=== PATIENT | female | born 1960 | race Hispanic/Latino ===

== ENCOUNTER 2017-05-08 14:39 | Observation (INO) | payer MEDICARE, OTHER ==
--- NOTE | 2017-05-08 14:58 | ED PDOC ---
Arrival/HPI - General Chief Complaint: Dizziness/Lightheaded Time Seen by Provider: 05/08/17 14:46 Historian: Patient - History of Present Illness Time/Duration: Prior to Arrival Symptom Onset: Sudden Symptom Course: Improving Severity Level: Moderate Associated Symptoms (Text): 05/08/17 14:56 Patient reports that she was walking outside and suddenly felt weak and dizzy and had a syncopal episode. There was no loss of bowel or bladder control. No tongue biting. She feels well at this time. No chest pain palpitations or dyspnea. No abdominal pain nausea or vomiting. No diaphoresis. She's had a similar episode previously. Past Medical History - Infectious Disease Hx of Infectious Diseases: None - Tetanus Immunization Tetanus Immunization: Unknown - Cardiac Hx Hypertension: Yes - Pulmonary Hx Respiratory Disorders: No - Neurological Hx Neurological Disorder: No - HEENT Hx HEENT Disorder: No - Renal Hx Renal Disorder: No - Endocrine/Metabolic Hx Endocrine Disorders: No - Hematological/Oncological Hx Blood Disorders: No - Integumentary Hx Dermatological Disorder: No - Musculoskeletal/Rheumatological Hx Falls: No - Gastrointestinal Hx Gastrointestinal Disorders: No - Genitourinary/Gynecological Hx Genitourinary Disorders: No - Psychiatric Hx Depression: No Hx Emotional Abuse: No Hx Physical Abuse: No Hx Substance Use: No - Surgical History Hx Appendectomy: Yes (20 yrs ago) - Anesthesia Hx Anesthesia: Yes Hx Anesthesia Reactions: No Hx Malignant Hyperthermia: No - Suicidal Assessment Feels Threatened In Home Enviroment: No Family/Social History - Physician Review Nursing Documentation Reviewed: Yes Family/Social History: Unknown Family HX Smoking Status: Never Smoked Hx Alcohol Use: No Hx Substance Use: No Hx Substance Use Treatment: No Allergies/Home Meds Allergies/Adverse Reactions: Allergies No Known Allergies Allergy (Verified 03/04/16 15:57) Home Medications: Home Meds Medication Instructions Recorded Confirmed Enalapril/Hydrochlorothiazide 5 - 12.5 mg PO DAILY 03/07/16 05/08/17 Ezetimibe/Simvastatin 10 mg PO DAILY 03/07/16 05/08/17 Lopid 600 mg PO BID 03/07/16 05/08/17 Review of Systems - Physician Review All systems were reviewed & negative as marked: Yes - Review of Systems Constitutional: Normal Respiratory: Normal Cardiovascular: Normal Gastrointestinal: Normal Genitourinary Female: Normal Neurological: Dizziness. absent: Headache, Focal Weakness, Gait Changes, Speech Changes, Facial Droop, Disequilibrium, Seizure Physical Exam Vital Signs Temp Pulse Resp BP Pulse Ox 05/08/17 16:41 89 18 145/71 98 05/08/17 15:42 98.7 F 05/08/17 15:38 95 H 18 148/75 98 05/08/17 14:50 98.1 F 107 H 18 152/79 H 95 Temperature: Afebrile Blood Pressure: Hypertensive Pulse: Regular Respiratory Rate: Normal Appearance: Positive for: Well-Appearing, Non-Toxic, Comfortable Pain Distress: None Mental Status: Positive for: Alert and Oriented X 3 - Systems Exam Head: Present: Atraumatic, Normocephalic Pupils: Present: PERRL Extroacular Muscles: Present: EOMI Conjunctiva: Present: Normal Ears: Present: NORMAL TM. No: Erythema Mouth: Present: Moist Mucous Membranes Pharnyx: No: ERYTHEMA, EXUDATE, TONSILS ENLARGED Neck: Present: Normal Range of Motion Respiratory/Chest: Present: Clear to Auscultation, Good Air Exchange, Decreased Breath Sounds. No: Respiratory Distress, Accessory Muscle Use Cardiovascular: Present: Regular Rate and Rhythm, Normal S1, S2. No: Murmurs Abdomen: Present: Normal Bowel Sounds. No: Tenderness, Distention, Peritoneal Signs Upper Extremity: Present: Normal Inspection. No: Cyanosis, Edema Lower Extremity: Present: Normal Inspection. No: Edema Neurological: Present: GCS=15, CN II-XII Intact, Speech Normal, Motor Func Grossly Intact, Normal Sensory Function, Normal Cerebellar Funct Skin: Present: Warm, Dry, Normal Color. No: Rashes Psychiatric: Present: Alert, Oriented x 3, Normal Insight, Normal Concentration Medical Decision Making ED Course and Treatment: 05/08/17 14:58 EKG shows normal sinus rhythm rate approximately [address] or T-wave changes Report Date : 05/08/2017 16:43:08 Procedure: Chest xray Dictator : Hai Mcdaniel MD IMPRESSION: No active disease. Report Date : 05/08/2017 17:15:13 PROCEDURE: CT HEAD WITHOUT CONTRAST. Dictator : Peace Hatfield MD IMPRESSION: No acute intracranial pathology identified. - Lab Interpretations Lab Results: 05/08/17 15:58 05/08/17 16:42 Lab Results 05/08/17 16:42: Sodium 144, Potassium 3.8, Chloride 107, Carbon Dioxide 24, Anion Gap 17, BUN 19, Creatinine 0.7, Est GFR ( Amer) > 60, Est GFR (Non- Af Amer) > 60, Random Glucose 91, Calcium 9.2, Magnesium 2.1, Total Bilirubin 0.6, AST 27, ALT 48, Alkaline Phosphatase 85, Lactate Dehydrogenase 553, Total Creatine Kinase 80, Troponin I < 0.01, Total Protein 7.5, Albumin 4.2, Globulin 3.2, Albumin/Globulin Ratio 1.3 05/08/17 15:58: PT 10.7, INR 0.99, APTT 23.9 05/08/17 15:58: WBC 8.6, RBC 4.42, Hgb 13.3, Hct 39.3, MCV 88.9, MCH 30.1, MCHC 33.8, RDW 13.3, Plt Count 204, MPV 11.2 H, Gran % 74.3 H, Lymph % (Auto) 17.7 L , [place] % (Auto) 5.9, Eos % (Auto) 1.9, Baso % (Auto) 0.2, Gran # 6.40, Lymph # 1.5, [place] # 0.5, Eos # 0.2, Baso # 0.02 - RAD Interpretation Radiology Orders: 05/08/17 14:54 HEAD W/O CONTRAST [CT] Stat 05/08/17 14:55 CHEST PORTABLE [RAD] Stat CT scan of the head as read by the radiologist shows no acute findings [employer]: Radiologist Disposition/Present on Arrival - Present on Arrival Any Indicators Present on Arrival: No History of DVT/PE: No History of Uncontrolled Diabetes: No Urinary Catheter: No History of Decub. Ulcer: No History Surgical Site Infection Following: None - Disposition Have Diagnosis and Disposition been Completed?: Yes Diagnosis: Syncope, Dizziness Disposition: HOSPITALIZED Disposition Time: 17:29 Patient Plan: Observation, Telemetry Patient Problems: Current Active Problems Problem Status Onset Dizziness Acute Syncope Acute Condition: GOOD Discharge Instructions (ExitCare): Syncope (ED) Forms: [employer] (Kyrgyz)
[2017-05-08 16:11] LABS: BASO # 0.02 K/mm3 (0.0-2.0); BASO % 0.2 % (0.0-3.0); EOS # 0.2 (0.0-0.7); EOS % 1.9 % (1.5-5.0); GRAN % 74.3 % (50.0-68.0); HEMOGLOBIN 13.3 gm/dL (12.0-16.0); LYMPH # 1.5 (1.2-3.4); LYMPH % 17.7 % (22.0-35.0); MEAN CELL VOLUME 88.9 fL (80.0-105.0); MEAN CORPUSCULAR HEMOGLOBIN 30.1 pg (25.0-35.0); MEAN CORPUSCULAR HGB CONC 33.8 g/dl (31.0-37.0); MEAN PLATELET VOLUME 11.2 fl (7.0-11.0); MONO # 0.5 (0.1-0.6); MONO % 5.9 % (1.0-6.0); PLATELET COUNT 204 10^3/uL (120.0-450.0); RBC 4.42 10^6/uL (3.5-6.1); RED CELL DISTRIBUTION WIDTH 13.3 % (11.5-14.5); WHITE BLOOD COUNT 8.6 10^3/ul (4.5-11.0)
[2017-05-08 16:18] LABS: INR 0.99 (0.93-1.08); PARTIAL THROMBOPLASTIN TIME 23.9 Seconds (23.7-30.8); PROTHROMBIN TIME 10.7 Seconds (9.9-11.8)
--- NOTE | 2017-05-08 16:44 | RAD ---
HISTORY: syncope COMPARISON: 03/07/2016 FINDINGS: LUNGS: No active pulmonary disease. PLEURA: No significant pleural effusion identified, no pneumothorax apparent. CARDIOVASCULAR: Normal. OSSEOUS STRUCTURES: No significant abnormalities. VISUALIZED UPPER ABDOMEN: Normal. OTHER FINDINGS: None. IMPRESSION: No active disease.
[2017-05-08 17:04] LABS: ALB/GLOB RATIO 1.3 (1.1-1.8); ALBUMIN 4.2 g/dL (3.0-4.8); ALT/SGPT 48 U/L (7-56); AST/SGOT 27 U/L (15-39); BLOOD UREA NITROGEN 19 mg/dL (7-21); CALCIUM 9.2 mg/dL (8.4-10.5); GFR AFRICAN-AMERICAN > 60; GFR NON-AFRICAN AMERICAN > 60; MAGNESIUM 2.1 mg/dL (1.7-2.2)
[2017-05-08 17:15] LABS: TROPONIN I < 0.01 ng/mL
--- NOTE | 2017-05-08 17:17 | CT ---
PROCEDURE: CT HEAD WITHOUT CONTRAST. HISTORY: syncope COMPARISON: Noncontrast head CT performed 03/04/16 TECHNIQUE: Axial computed tomography images were obtained through the head/brain without intravenous contrast. Radiation dose: Total exam DLP = 774.23 mGy-cm. This CT exam was performed using one or more of the following dose reduction techniques: Automated exposure control, adjustment of the mA and/or kV according to patient size, and/or use of iterative reconstruction technique. FINDINGS: HEMORRHAGE: No intracranial hemorrhage. BRAIN: No mass effect or edema. No atrophy or chronic microvascular ischemic changes.Please note that MRI with diffusion imaging is more sensitive in the detection of acute ischemic event. VENTRICLES: No hydrocephalus. CALVARIUM: Unremarkable. PARANASAL SINUSES: Unremarkable as visualized. No significant inflammatory changes. MASTOID AIR CELLS: Unremarkable as visualized. No inflammatory changes. OTHER FINDINGS: None. IMPRESSION: No acute intracranial pathology identified.
[2017-05-08 17:56] LABS: URINE APPEARANCE CLEAR (CLEAR); URINE BILIRUBIN NEGATIVE (NEGATIVE); URINE BLOOD NEGATIVE (NEGATIVE); URINE COLOR YELLOW (YELLOW); URINE GLUCOSE (UA) NEGATIVE (NEGATIVE); URINE LEUKOCYTE ESTERASE NEGATIVE Leu/uL (NEGATIVE); URINE NITRATE NEGATIVE (NEGATIVE); URINE PROTEIN NEGATIVE mg/dL (<30 mg/dL); URINE UROBILINOGEN 0.2 E.U./dL (<1 E.U./dL)
[2017-05-08 21:52] VITALS: BMI 31.1
[2017-05-08] MEDS ORDERED: Pneumococcal 23-Valent Vaccine IM ONE (23:47)
[2017-05-09 06:10] VITALS: O2SAT 98
[2017-05-09 06:20] LABS: HEMOGLOBIN 12.9 gm/dL (12.0-16.0); MEAN CELL VOLUME 89.1 fL (80.0-105.0); MEAN CORPUSCULAR HEMOGLOBIN 29.8 pg (25.0-35.0); MEAN CORPUSCULAR HGB CONC 33.4 g/dl (31.0-37.0); MEAN PLATELET VOLUME 10.8 fl (7.0-11.0); RBC 4.33 10^6/uL (3.5-6.1); RED CELL DISTRIBUTION WIDTH 13.2 % (11.5-14.5); WHITE BLOOD COUNT 7.6 10^3/ul (4.5-11.0)
[2017-05-09 07:26] LABS: BLOOD UREA NITROGEN 18 mg/dL (7-21); CALCIUM 8.9 mg/dL (8.4-10.5); GFR AFRICAN-AMERICAN > 60; GFR NON-AFRICAN AMERICAN > 60; HDL CHOLESTEROL 29 mg/dL (29-60)
[2017-05-09 07:37] LABS: LDL CHOLESTEROL 91 mg/dL (0-129)
[2017-05-09 07:44] LABS: % IRON SATURATION 19 % (20-55); IRON 52 ug/dL (45-180); TOTAL IRON BINDING CAPACITY 272 ug/dL (265-497)
[2017-05-09] MEDS ORDERED: Potassium Chloride 20 mEq ER Tab PO ONE (08:07)
--- NOTE | 2017-05-09 08:59 | CARD ---
APPROVED REPORT EKG Measurement Heart [id number] OK [id number] <Conclusion> Normal sinus rhythm Nonspecific ST abnormality No change
[2017-05-09 09:27] LABS: TROPONIN I < 0.01 ng/mL
[2017-05-09] MEDS ORDERED: Aminophylline 25 mg/ml Inj ONE (10:24)
[2017-05-09 12:58] LABS: FOLATE > 20.0 ng/mL
--- NOTE | 2017-05-09 16:17 | CARD ---
APPROVED REPORT EXAM: Two-dimensional and M-mode echocardiogram with Doppler and color Doppler. INDICATION Syncope 2D DIMENSIONS Left Atrium (2D)4.2 (1.6-4.0cm)IVSd1.1 (0.7-1.1cm) LVDd4.6 (3.9-5.9cm)PWd1.0 (0.7-1.1cm) LVDs3.0 (2.5-4.0cm)FS (%) 34.2 % LVEF (%)63.2 (>50%) M-Mode DIMENSIONS Aortic Root2.90 (2.2-3.7cm)Aortic Cusp Exc.1.80 (1.5-2.0cm) Aortic Valve AoV Peak Ydvxpxme280.0cm/Pati Peak GR.8mmHg Mitral Valve MV E Smdyzzqk09.6cm/sMV A Pgugnhqb32.7cm/sE/A ratio1.1 TDI Lateral E' Peak V9.16cm/sMedial E' Peak V6.63cm/sE/Lateral E'7.3 E/Medial E'10.0 Pulmonary Valve PV Peak Zkaqdnts52.2cm/sPV Peak Grad.2mmHg Tricuspid Valve TR Peak Avvwshfk412vf/sRAP SRYDTHMQ26xiUcLW Peak Gr.39mmHg QQRV13wtRp LEFT VENTRICLE The left ventricle is normal size. There is normal left ventricular wall thickness. The left ventricular function is normal.EF-60-65% There is normal LV segmental wall motion. The left ventricular diastolic function is normal. No left ventricle thrombus noted on this study. There is no ventricular septal defect visualized. There is no left ventricular aneurysm. There is no mass noted in the left ventricle. RIGHT VENTRICLE The right ventricle is normal size. There is normal right ventricular wall thickness. The right ventricular systolic function is normal. ATRIA The left atrium is mildly dilated. The right atrium is borderline dilated. The interatrial septum is intact with no evidence for an atrial septal defect. AORTIC VALVE The aortic valve is thickened but opens well. There is trace aortic regurgitation. There is no aortic valvular stenosis. There is no aortic valvular vegetation. MITRAL VALVE The mitral valve is thickened but opens well. Mitral annular calcification is mild. Mitral regurgitation is mild. There is no mitral valve stenosis. There is no evidence of mitral valve prolapse. TRICUSPID VALVE The tricuspid valve leaflets are thickened , but open well. There is mild to moderate tricuspid regurgitation.RVSP-49 mmof Hg. There is no tricuspid valve stenosis. There is no tricuspid valve prolapse or vegetation. PULMONIC VALVE The pulmonary valve is normal in structure. There is no pulmonic valvular regurgitation. There is no pulmonic valvular stenosis. GREAT VESSELS The aortic root is normal in size. The ascending aorta is normal in size. The pulmonary artery is normal. The IVC is normal in size and collapses >50% with inspiration. PERICARDIAL EFFUSION There is no pleural effusion. There is no pericardial effusion. <Conclusion> The left ventricle is normal size. There is normal left ventricular wall thickness. The left ventricular function is normal.EF-60-65% There is trace aortic regurgitation. Mitral regurgitation is mild. There is mild to moderate tricuspid regurgitation.RVSP-49 mmof Hg. The IVC is normal in size and collapses >50% with inspiration. There is no pericardial effusion.
--- NOTE | 2017-05-09 18:04 | CON ---
DATE: 05/09/2017 CHIEF COMPLAINT: Headache and dizziness. HISTORY OF PRESENT ILLNESS: This is a 56-year-old woman with past medical history of hypertension, history of appendectomy 20 years ago, history of dyslipidemia who came to the hospital because while she was walking outside she probably felt generalized weakness, dizziness in terms of lightheaded and a syncopal episode without any bowel or bladder incontinence. No tongue bite. No seizure like activity. She had a mild headache diffuse pressure type but are currently is no longer. Orthostatic vital signs are negative. She had a carotid Doppler in the past year which was showed 20-39% proximal ICA stenosis with antegrade flow vertebral artery. Neurologic exam is currently nonfocal and had been seen by cardiology. No acute events overnight. PAST MEDICAL HISTORY: Hypertension and dyslipidemia. REVIEW OF SYSTEMS: A 14-point review of system is negative except as in the HPI. ALLERGIES: NO KNOWN DRUG ALLERGIES. FAMILY HISTORY: Noncontributory. MEDICATIONS: Reviewed by nurse practitioner, see med reconciliation sheet. SOCIAL HISTORY: No illicit drug use, smoking, or EtOH abuse. PHYSICAL EXAMINATION GENERAL: The patient is sitting up in bed. In no acute distress. VITAL SIGNS: Temperature 99, pulse rate 70, blood pressure 121/74, respiratory rate 20, oxygen saturations 98% by room air. HEENT: Head is atraumatic and normocephalic. PERRLA. Extraocular muscles intact. NECK: Supple. No JVD. No adenopathy noted. LUNGS: Clear to auscultation. No adventitious sounds. HEART: S1 and S2, normal rate and rhythm. No murmurs, rubs, or gallops. ABDOMEN: Soft, nontender, nondistended. Bowel sounds present. EXTREMITIES: No clubbing, no cyanosis. Peripheral pulses 2+ felt bilaterally. NEUROLOGIC: The patient is alert and oriented to person and place, month, and year. Speech is fluent without any errors. Cranial nerves II through XII intact. Motor exam: Moves all extremities equally. Toes are downgoing bilaterally. Sensory exam: Light touch, pinprick, proprioception and vibration are intact. DTRs are 2+ throughout. Coordination, hcaekh-jr-jnjl intact. Gait is deferred for now. LABORATORY DATA: Sodium 141, potassium 3.6, chloride 104, carbon dioxide 26, BUN of 18, creatinine 0.6, random glucose 98. A1c 6.3. ASSESSMENT AND PLAN: This is a 56-year-old male with history of hypertension, dyslipidemia, had a syncopal episode, was consulted for headache. The headache was diffuse pressure type but without any auras. Most likely attention based headache. Currently, he has no headache at this time. Syncopal episode seems most likely vasovagal in nature. Orthostatic vital signs are negative. RECOMMENDATIONS: At this time I will recommend: 1. Keep his systolic blood pressures between 120-130 mmHg. 2. Continue with aspirin 81 mg p.o. daily for stroke prevention. 3. Continue with Lipitor 10 mg p.o. daily for dyslipidemia. 4. Recommend hydration . 5. Fioricet p.r.n. 1 tab q.4 hours for acute onset of headache if needed. 6. At this time continue current present medical management. Thank you for this consult. Neurologically stable. Dimitry Mario MD
--- NOTE | 2017-05-09 20:28 | CON ---
REASON FOR THE CONSULTATION: Syncope, dizziness, hypertension, hyperlipidemia. BRIEF CLINICAL HISTORY: A 56 year old obese female, body mass index 31 kg/m2, history of hypertension, history of hyperlipidemia, hypertriglyceridemia, possible benign positional vertigo (chronic vertigo), being followed with Dr. Mario, on Meclizine, who was in the [employer], went for shopping to [employer]. While the patient got off the bus, felt dizzy and passed out. Denies any chest pain. Denies shortness of breath. Denies any palpitation. While the patient recalled memory, found to be in hospital. The patient says this is second episode, but always feels that she is going to pass out starting with dizziness. According to her, previously she has been worked up and it was found to me negative. Last admission was in March 2016 with syncope also. PAST HISTORY: Significant for hypertension, hyperlipidemia, dizziness. SOCIAL HISTORY: Denies smoking. Used to smoke off and on a pack a day but quit for more than 10 years. PAST SURGICAL HISTORY: Significant for appendectomy many years ago. FAMILY HISTORY: Noncontributory. No history of coronary artery disease as per the patient. CURRENT MEDICATIONS: The patient is taking Lopid 600 mg twice a day, Zetia and simvastatin combination, Vytorin 10/20, enalapril and hydrochlorothiazide combination, 5 mg enalapril and 12.5 mg hydrochlorothiazide and p.r.n. meclizine. REVIEW OF SYSTEMS: As per HPI and negative except HPI. Previous cardiac workup as follows: The patient had carotid artery ultrasound on 03/08/2013 29% stenosis, history of stress test on 05/06/2016 and normal gated wall motion, perfusion study normal, Lexiscan ejection fraction 52%. The patient had echocardiography on 03/08/2016 that showed normal chamber size, ejection fraction 55% to 60%, trace to mild MR, mild to moderate TR, RV systolic pressure 29. PHYSICAL EXAMINATION: As follows: Height of the patient 5 feet 5 inches, weight of the patient 186 pounds, body mass index 31 kg/m2. LABORATORY DATA: Blood workup WBC 7.3, hemoglobin 12.9, hematocrit 38.9, platelet count 202. Chemistry shows sodium 141, potassium 3.0, chloride 104, carbon dioxide 26, anion gap of 15, BUN 18, creatinine 0.6. Triglycerides 276, cholesterol 168, LDL 91, HDL 29. IMPRESSION: Syncope, chronic dizziness, possible benign positional vertigo, hypertension, hyperlipidemia, multiple vessel coronary artery disease. Suggest echo and stress test, lipid profile, TSH. Further recommendation after this. We will follow with you. Thank you for the opportunity in taking care of the patient. We will discuss with Neurology as to if no etiology found for the syncope, consider loop recorder as an outpatient. We will discuss with you. Matteo Mars MD
--- NOTE | 2017-05-09 21:33 | CARD ---
APPROVED REPORT Protocol: LEXISCAN Test Type: Lexiscan Sestamibi Stress Test Attending Physician: Dr. Matteo Arroyo Referring Physician: Dr. Marycarmen Otero Test Indications: Chest Pain, Syncope Height:5 ft 5 in Weight:186lbs Medications: Lipitor,Zetia,Lopid Medical History: 56 y/o female. Hx of hypertension,syncope, dizziness. Target HR: 166 bpm Resting ECG: RSR. Resting Heart Rate: 73 bpm Resting Blood Pressure: 130/80mmHg Submaximum (85%): 141 bpm PROCEDURE Pharmacologic stress testing was performed using 0.4mg per 5ml of regadenoson given intravenously over 7-10 seconds. POST EXERCISE Reason for Termination: Protocol completed Target HR: No Max HR: 72 bpm 61% of Maximum Predicted HR: 166 bpm Exercise duration: 00:31 min:sec, 0 Stage Exercise capacity: 1.0METs Max Blood Pressure: 130/80mmHg Blood Pressure response to exercise: normal resting BP - appropriate response Heart Rate response to exercise: appropriate Chest Pain: No, none Angina index: 0 Arrhythmia: No, none ST Change: No, none Deviation: 0 mm INTERPRETATION Stress EKG Conclusion: IV LEXISCAN NUCLEAR STRESS TEST NEGATIVE FOR CHEST PzIN AND NEGATIVE FOR ST-T CHANGES. NUCLEAR SCAN REPORT PENDING. Signed by Matteo Arroyo Electronically Approved: 05/09/2017 11:21:00 EXAM: Myocardial Perfusion REST/STRESS Stress Test Type: Pharmacologic Imaging Protocol Rest Spect myocardial perfusion imaging was performed in supine position 45 minutes following the injection of 10.3 mCi of Tc-99 Myoview. At peak stress, the patient was injected intravenously with 30.7mCi of Tc-99 tetrofosmin after an infusion time of 0 minutes and 10 seconds. Gated Stress Spect was performed 50 minutes after intravenous Tc-99 Myoview injection. The images were gated to evaluate regional wall motion and calculate ventricular ejection fraction.Images were reconstructed using backfilter projection method in short horizontal and verticle long axis. Spect slices were generated. LV Perfusion The quality of the study is good. The left ventricle is within normal limits in size. The right ventricle is unremarkable. The lung uptake is normal. The distribution of tracer reveals focal hot spot in the septu and mildly to moderately decreased perfusion involving mid to basal anterior wall on the stress study. The remainder of the LV myocardium is unremarkable. The rest myocardial perfusion study shows no significant change. Wall Motion Wall motion study shows good contractility of the left ventricle. LVEF = 64%. Conclusion 1. Essentially normal SPECT myocardial perfusion study. 2. A focal hot spot is a normal variant. 3. Fixed, anterior defect is most likely due to breast attenuation. 4. Normal gated wall motion of the left ventricle.
--- NOTE | 2017-05-10 03:24 | HP ---
CHIEF COMPLAINT: Dizziness and lightheadedness. HISTORY OF PRESENT ILLNESS: The patient is a 56-year-old female came to the emergency room because according to her she was walking outside and suddenly felt weak and dizzy and had a syncopal episode. No loss of bowel movement, bladder control or tongue bite. She feels well at that time when we saw her. No chest pain, no palpitation, no dizziness or shortness of breath. No nausea, vomiting, or diarrhea. No diaphoresis. She had similar episode previously, required a flat sorting machine clerk and neurology consult to rule out arrhythmias and to rule out seizures. PAST MEDICAL HISTORY: Hypertension, history of syncopal attack a couple of months ago and history of appendectomy. The patient is mentally challenged. FAMILY HISTORY: Father and mother noncontributory. HABITS: No smoking, no drug, no ethanol. ALLERGIES: THE PATIENT IS NOT ALLERGIC WITH ANY MEDICATION. HOME MEDICATIONS: Enalapril, simvastatin and Lopid. REVIEW OF SYSTEMS: The patient is seen and examined on the bedside in the telemetry, looking comfortable. No nausea, vomiting or diarrhea. No hematuria, no hematochezia. No swelling of the leg. No chest pain, no palpitation. No headache, no dizziness. PHYSICAL EXAMINATION: VITAL SIGNS: Temperature 97, pulse 79, blood pressure 130/82 and respiratory rate 20. HEENT: Head; normocephalic and atraumatic. Eyes; PERRLA. Extraocular muscles intact. Conjunctivae clear. Nose is patent. Mucous membranes moist. NECK: Supple. No carotid bruits, JVD or thyromegaly. CHEST: Bilaterally symmetrical. HEART: S1 and S2 positive. LUNGS: Clear to auscultation. ABDOMEN: Soft. Bowel sounds are present. No organomegaly. EXTREMITIES: No edema. No cyanosis. NEUROLOGIC: The patient is awake and alert. Moving all 4 extremities. No focal deficit. LABORATORY DATA: White blood cell is 7.6, hemoglobin 12.9, hematocrit 38.6 and platelets 202. Sodium 141, potassium 3.6, BUN 18, creatinine 0.6. Hemoglobin A1c is 6.3. Iron saturation 19. Triglyceride 276. TSH 3.1. Beta hCG quantitative is less than 2.39. ASSESSMENT AND PLAN: The patient is a 56-year-old lady with hypertriglyceridemia, came with syncopal attack, lightheadedness and dizziness, history of hypertension and hypercholesterolemia, seen by neurologist and flat sorting machine clerk. Headache was diffuse, pressure type without any aura. According to the neurologist, syncopal attack looked like vasovagal in nature. Orthostatic vital signs are negative. According to the neurologist, keep blood pressure between 120 to 130 systolic. Aspirin and Lipitor, hydration, Fioricet. She went for CAT scan of the head, reviewed by me. Plan for myocardial stress test. Stress test was essentially normal, SPET myocardial perfusion study. A focal hotspot is a normal variant, the fact is most likely due to breast attenuation, normal gated wall motion of the left ventricle. Dizziness may be due to position, benign vertigo, rule out coronary artery disease as per flat sorting machine clerk, suggested upon stress test done, reviewed by me. Gastrointestinal and deep venous thrombosis prophylaxis, we will follow. Marycarmen Otero MD MTDD
[2017-05-10 11:43] VITALS: BP 114/75; PULSE 72; RESP 16; TEMP 98
--- NOTE | 2017-05-10 18:37 | CP.PCM.DIS ---
Provider - Provider Date of Admission: 05/08/17 17:29 Attending physician: Marycarmen Otero MD Time Spent in preparation of Discharge (in minutes): 60 Hospital Course - Lab Results Lab Results: Most Recent Lab Values WBC 7.6 10^3/ul (4.5-11.0) 05/09/17 05:20 RBC 4.33 10^6/uL (3.5-6.1) 05/09/17 05:20 Hgb 12.9 gm/dL (12.0-16.0) 05/09/17 05:20 Hct 38.6 % (36.0-48.0) 05/09/17 05:20 MCV 89.1 fL (80.0-105.0) 05/09/17 05:20 MCH 29.8 pg (25.0-35.0) 05/09/17 05:20 MCHC 33.4 g/dl (31.0-37.0) 05/09/17 05:20 RDW 13.2 % (11.5-14.5) 05/09/17 05:20 Plt Count 202 10^3/uL (120.0-450.0) 05/09/17 05:20 MPV 10.8 fl (7.0-11.0) 05/09/17 05:20 Gran % 74.3 % (50.0-68.0) H 05/08/17 15:58 Lymph % (Auto) 17.7 % (22.0-35.0) L 05/08/17 15:58 [place] % (Auto) 5.9 % (1.0-6.0) 05/08/17 15:58 Eos % (Auto) 1.9 % (1.5-5.0) 05/08/17 15:58 Baso % (Auto) 0.2 % (0.0-3.0) 05/08/17 15:58 Gran # 6.40 (1.4-6.5) 05/08/17 15:58 Lymph # 1.5 (1.2-3.4) 05/08/17 15:58 [place] # 0.5 (0.1-0.6) 05/08/17 15:58 Eos # 0.2 (0.0-0.7) 05/08/17 15:58 Baso # 0.02 K/mm3 (0.0-2.0) 05/08/17 15:58 PT 10.7 Seconds (9.9-11.8) 05/08/17 15:58 INR 0.99 (0.93-1.08) 05/08/17 15:58 APTT 23.9 Seconds (23.7-30.8) 05/08/17 15:58 Sodium 141 mmol/L (132-148) 05/09/17 06:00 Potassium 3.6 mmol/L (3.6-5.0) 05/09/17 06:00 Chloride 104 mmol/L (98-107) 05/09/17 06:00 Carbon Dioxide 26 mmol/L (21-33) 05/09/17 06:00 Anion Gap 15 (10-20) 05/09/17 06:00 BUN 18 mg/dL (7-21) 05/09/17 06:00 Creatinine 0.6 mg/dL (0.5-1.4) 05/09/17 06:00 Est GFR ( Amer) > 60 05/09/17 06:00 Est GFR (Non-Af Amer) > 60 05/09/17 06:00 Random Glucose 98 mg/dL (70-110) 05/09/17 06:00 Hemoglobin A1c 6.3 % (4.2-6.5) 05/09/17 06:00 Calcium 8.9 mg/dL (8.4-10.5) 05/09/17 06:00 Magnesium 2.1 mg/dL (1.7-2.2) 05/08/17 16:42 Iron 52 ug/dL (45-180) 05/09/17 06:00 TIBC 272 ug/dL (265-497) 05/09/17 06:00 % Saturation 19 % (20-55) L 05/09/17 06:00 Total Bilirubin 0.6 mg/dL (0.2-1.3) 05/08/17 16:42 AST 27 U/L (15-39) 05/08/17 16:42 ALT 48 U/L (7-56) 05/08/17 16:42 Alkaline Phosphatase 85 U/L (38-133) 05/08/17 16:42 Lactate Dehydrogenase 520 U/L (333-699) 05/09/17 06:30 Total Creatine Kinase 68 U/L (35-230) 05/09/17 06:30 Troponin I < 0.01 ng/mL 05/09/17 06:30 Total Protein 7.5 g/dL (5.8-8.3) 05/08/17 16:42 Albumin 4.2 g/dL (3.0-4.8) 05/08/17 16:42 Globulin 3.2 gm/dL 05/08/17 16:42 Albumin/Globulin Ratio 1.3 (1.1-1.8) 05/08/17 16:42 Triglycerides 276 mg/dL (35-160) H 05/09/17 06:00 Cholesterol 168 mg/dL (130-200) 05/09/17 06:00 LDL Cholesterol Direct 91 mg/dL (0-129) 05/09/17 06:00 HDL Cholesterol 29 mg/dL (29-60) 05/09/17 06:00 Vitamin B12 369 pg/mL (239-931) 05/09/17 06:00 Folate > 20.0 ng/mL 05/09/17 06:00 TSH 3rd Generation 3.1 MIU/ml (0.46-4.68) 05/09/17 05:20 Beta HCG, Quant < 2.39 mIU/mL (0-6.15) 05/09/17 06:30 Urine Color Yellow (YELLOW) 05/08/17 17:51 Urine Appearance Clear (CLEAR) 05/08/17 17:51 Urine pH 7.0 (4.7-8.0) 05/08/17 17:51 Ur Specific [place] 1.020 (1.005-1.035) 05/08/17 17:51 Urine Protein Negative mg/dL (<30 mg/dL) 05/08/17 17:51 Urine Glucose (UA) Negative mg/dL (NEGATIVE) 05/08/17 17:51 Urine Ketones Trace mg/dL (NEGATIVE) H 05/08/17 17:51 Urine Blood Negative (NEGATIVE) 05/08/17 17:51 Urine Nitrate Negative (NEGATIVE) 05/08/17 17:51 Urine Bilirubin Negative (NEGATIVE) 05/08/17 17:51 Urine Urobilinogen 0.2 E.U./dL (<1 E.U./dL) 05/08/17 17:51 Ur Leukocyte Esterase Negative Makenna/uL (NEGATIVE) 05/08/17 17:51 - Hospital Course Hospital Course: Patient reports that she was walking outside and suddenly felt weak and dizzy and had a syncopal episode. There was no loss of bowel or bladder control. No tongue biting. She feels well at this time. No chest pain palpitations or dyspnea. No abdominal pain nausea or vomiting. No diaphoresis. She's had a similar episode previously.neuro and ardio consult called , cat scane done , reviewed all chart Discharge Exam - Head Exam Head Exam: ATRAUMATIC, NORMAL INSPECTION, NORMOCEPHALIC - Eye Exam Eye Exam: EOMI, Normal appearance, PERRL Pupil Exam: NORMAL ACCOMODATION, PERRL - ENT Exam ENT Exam: Normal Oropharynx - Neck Exam Neck exam: Full Rom - Respiratory Exam Respiratory Exam: NORMAL BREATHING PATTERN, UNREMARKABLE - Cardiovascular Exam Cardiovascular Exam: REGULAR RHYTHM - GI/Abdominal Exam GI & Abdominal Exam: Normal Bowel Sounds - Rectal Exam Rectal Exam: NORMAL INSPECTION - Exam Exam: Circumcision, NORMAL INSPECTION External exam: NORMAL EXTERNAL EXAM Speculum exam: NORMAL SPECULUM EXAM Bimanual exam: NORMAL BIMANUAL EXAM - Neurological Exam Neurological exam: Alert, CN II-XII Intact, Normal Gait, Oriented x3, Reflexes Normal - Psychiatric Exam Psychiatric exam: Normal Affect, Normal Mood - Skin Skin Exam: Dry, Intact, Normal Color, Warm Discharge Plan - Follow Up Plan Condition: GOOD Disposition: HOME/ ROUTINE Instructions: Syncope (DC), Dizziness (GEN)
--- NOTE | 2017-05-10 21:46 | PN ---
DATE: 05/10/2017 SUBJECTIVE: I was asked to evaluate the patient prior to discharge. The patient denies any chest pain, dizziness, or shortness of breath. No reported arrhythmia on the monitor. PHYSICAL EXAMINATION: VITAL SIGNS: Blood pressure 114/75, heart rate 72, temperature 98, and respirations 16. HEENT: Normocephalic. CHEST: Clear. HEART: S1 and S2 regular. EXTREMITIES: N edema. LABORATORY DATA: Discharge troponins are negative. Triglycerides are elevated at 276. SMA-7 is within normal limit. Myoview imaging was consistent into conclusion with essentially normal SPECT myocardial perfusion study, focal hotspot is a normal variant, most likely due to breast attenuation, normal gated wall motion sensitive. ASSESSMENT: 1. Syncope. 2. Chronic dizziness, possibly benign positional vertigo. 3. Hypertension. 4. Hypertriglyceridemia. 5. Coronary artery disease. The current Myoview imaging is negative for ischemia. RECOMMENDATIONS: Continue current Lipitor and Lopid. Start aspirin 81 mg once a day. The patient can be discharged from the cardiac point. Robles Francis MD
== END 2017-05-10 15:57 | disposition home or self-care (01) ==
LOC: ED 14:39 → ERH 17:29 → 2RNO 23:43
PROVIDERS: ADMIT Internal Medicine; ATTEND Internal Medicine
DX: R55 Syncope and collapse (principal); R42 Dizziness and giddiness; I10 Essential (primary) hypertension; I65.29 Occlusion and stenosis of unspecified carotid artery; E78.1 Pure hyperglyceridemia; E78.00 Pure hypercholesterolemia, unspecified; E78.5 Hyperlipidemia, unspecified; E66.9 Obesity, unspecified; Z68.31 Body mass index [BMI] 31.0-31.9, adult; Z90.49 Acquired absence of other specified parts of digestive tract; Z87.891 Personal history of nicotine dependence
CPT/HCPCS: 36415; 70450; 71010; 78452; 80048; 80053; 80061; 81003; 82550; 82607; 82746; 82948; 83036; 83540; 83550; 83615; 83735; 84443; 84484; 84702; 85025; 85027; 85610; 85730; 93005; 93017; 93306; 99285; A9502; G0378; J2785

== ENCOUNTER 2017-05-18 14:17 | Observation (INO) | payer MEDICARE ==
[2017-05-18] MEDS ORDERED: Sodium Chloride 0.9% 1,000 ML IV STA (14:32)
--- NOTE | 2017-05-18 14:39 | ED PDOC ---
Arrival/HPI - General Chief Complaint: Syncope Time Seen by Provider: 05/18/17 14:19 Historian: Patient - History of Present Illness Narrative History of Present Illness (Text): 05/18/17 14:35 A 56 year old female whose past medical history includes, hypertension, presents to the Emergency department after a syncopal episode. The patient states that she got up to use the restroom when she fainted. pt unsure if she hit head, c/o of matos She also notes that she was recently admitted 1 week ago and discharges home. The patient denies fevers, chills, headache, chest pain, shortness of breath, cough, abdominal pain, nausea, vomiting, diarrhea, or an other complaints. 05/18/17 17:05 Time/Duration: Prior to Arrival Symptom Onset: Sudden Symptom Course: Unchanged Activities at Onset: Rest, Light Context: Home Past Medical History - Provider Review Nursing Documentation Reviewed: Yes - Infectious Disease Hx of Infectious Diseases: None - Tetanus Immunization Tetanus Immunization: Unknown - Cardiac Hx Cardiac Disorders: Yes Hx Hypertension: Yes - Pulmonary Hx Respiratory Disorders: No - Neurological Hx Neurological Disorder: Yes Hx Dizziness: Yes Other/Comment: syncope, loc - HEENT Hx HEENT Disorder: Yes (speech impediment, eyeglasses) - Renal Hx Renal Disorder: No - Endocrine/Metabolic Hx Endocrine Disorders: No - Hematological/Oncological Hx Blood Disorders: No - Integumentary Hx Dermatological Disorder: Yes Other/Comment: rle 1cm round red wound was a "mosquito bite" pt scratched it - Musculoskeletal/Rheumatological Hx Musculoskeletal Disorders: Yes Hx Falls: Yes (syncopal episode today) - Gastrointestinal Hx Gastrointestinal Disorders: Yes - Genitourinary/Gynecological Hx Genitourinary Disorders: No - Psychiatric Hx Psychophysiologic Disorder: No Hx Depression: No Hx Emotional Abuse: No Hx Physical Abuse: No Hx Substance Use: No - Surgical History Hx Appendectomy: Yes - Anesthesia Hx Anesthesia: Yes Hx Anesthesia Reactions: No Hx Malignant Hyperthermia: No - Suicidal Assessment Feels Threatened In Home Enviroment: No Family/Social History - Physician Review Nursing Documentation Reviewed: Yes Family/Social History: No Known Family HX Smoking Status: Never Smoked Hx Alcohol Use: No Hx Substance Use: No Hx Substance Use Treatment: No Allergies/Home Meds Allergies/Adverse Reactions: Allergies No Known Allergies Allergy (Verified 05/18/17 14:25) Home Medications: Home Meds Medication Instructions Recorded Confirmed Unobtainable 05/18/17 05/18/17 Review of Systems - Physician Review All systems were reviewed & negative as marked: Yes - Review of Systems Constitutional: absent: Fevers, Night Sweats Respiratory: absent: SOB, Cough Cardiovascular: Syncope. absent: Chest Pain Gastrointestinal: absent: Abdominal Pain, Diarrhea, Nausea, Vomiting Neurological: absent: Headache Physical Exam Vital Signs Reviewed: Yes Vital Signs Temp Pulse Resp BP Pulse Ox 05/18/17 17:11 78 21 129/67 100 05/18/17 14:26 98.5 F 85 15 125/89 99 Temperature: Afebrile Blood Pressure: Normal Pulse: Regular Respiratory Rate: Normal Appearance: Positive for: Well-Appearing, Non-Toxic, Comfortable Pain Distress: None Mental Status: Positive for: Alert and Oriented X 3 - Systems Exam Head: Present: Atraumatic, Normocephalic Pupils: Present: PERRL Extroacular Muscles: Present: EOMI Conjunctiva: Present: Normal Mouth: Present: Moist Mucous Membranes Neck: Present: Normal Range of Motion Respiratory/Chest: Present: Clear to Auscultation, Good Air Exchange. No: Respiratory Distress, Accessory Muscle Use Cardiovascular: Present: Regular Rate and Rhythm, Normal S1, S2. No: Murmurs Abdomen: Present: Normal Bowel Sounds. No: Tenderness, Distention, Peritoneal Signs Back: Present: Normal Inspection Upper Extremity: Present: Normal Inspection. No: Cyanosis, Edema Lower Extremity: Present: Normal Inspection. No: Edema Neurological: Present: GCS=15, CN II-XII Intact, Speech Normal Skin: Present: Warm, Dry, Normal Color. No: Rashes Psychiatric: Present: Alert, Oriented x 3, Normal Insight, Normal Concentration Medical Decision Making ED Course and Treatment: 05/18/17 14:40 Impression: A 56 year old female with a syncopal episode at home. Denies injury to head. Plan: -- EKG -- Chest X-ray -- Head CT -- IV Fluids -- Urinalysis -- Labs -- Reassess and disposition Prior Visits: Patient last seen in the Emergency department on 05/08/2017 for a syncopal episode. Progress Notes: EKG: Ordered, reviewed, and independently interpreted the EKG. Rate : 78 BPM Rhythm : NSR Interpretation : No ST/T-wave changes 05/18/17 17:37 CT Head Without Intravenous Contrast IMPRESSION: No hemorrage, mass effect or subacute territorial infarction. CT can miss an acute nonhemorrhagic CVA. No acute findings. Stable study. Acute strokes may be initially radiologically occult on CT. If the patient is having persistent stroke like symptomatology, then MRI may be beneficial Dictated and Authenticated by: Veronica Echols MD 05/18/2017 5:32 PM Eastern Time ([place] & [place]) 05/18/17 17:48 while in er, while checking ortho statics, pt had syncopal episode. unsafe d/c. during episode. pt on monitor, pt remained in sinus rhythm, blood sugar checked. dr olivera accpets for obs. - Lab Interpretations Lab Results: 05/18/17 14:50 05/18/17 14:50 Lab Results 05/18/17 17:03: Urine Color Yellow, Urine Appearance Clear, Urine pH 6.0, Ur Specific [place] 1.010, Urine Protein Negative, Urine Glucose (UA) Negative, Urine Ketones Negative, Urine Blood Negative, Urine Nitrate Negative, Urine Bilirubin Negative, Urine Urobilinogen 0.2, Ur Leukocyte Esterase Negative, Urine HCG, Qual Negative 05/18/17 15:36: POC Glucose (mg/dL) 93 05/18/17 14:50: Sodium 140, Potassium 3.6, Chloride 103, Carbon Dioxide 27, Anion Gap 14, BUN 20, Creatinine 0.6, Est GFR ( Amer) > 60, Est GFR (Non- Af Amer) > 60, Random Glucose 87, Calcium 8.9, Magnesium 2.1, Total Bilirubin 0.7, AST 40 H, ALT 40, Alkaline Phosphatase 77, Lactate Dehydrogenase 555, Total Creatine Kinase 56, Troponin I < 0.01, Total Protein 7.2, Albumin 4.1, Globulin 3.1, Albumin/Globulin Ratio 1.3 05/18/17 14:50: PT 10.7, INR 0.99, APTT 24.3 05/18/17 14:50: WBC 7.4, RBC 4.37, Hgb 13.3, Hct 38.3, MCV 87.6, MCH 30.4, MCHC 34.7, RDW 12.8, Plt Count 208, MPV 11.3 H, Gran % 66.7, Lymph % (Auto) 23.8, [place] % (Auto) 6.6 H, Eos % (Auto) 2.6, Baso % (Auto) 0.3, Gran # 4.93, Lymph # 1.8, [place] # 0.5, Eos # 0.2, Baso # 0.02 I have reviewed the lab results: Yes - RAD Interpretation Radiology Orders: 05/18/17 14:31 CHEST PORTABLE [RAD] Stat 05/18/17 15:35 HEAD W/O CONTRAST [CT] Stat - EKG Interpretation Interpreted by ED Physician: Yes Type: 12 lead EKG - Medication Orders Current Medication Orders: Discontinued Medications Sodium Chloride (Sodium Chloride 0.9%) 1,000 mls @ 999 mls/hr IV .Q1H1M STA Stop: 05/18/17 15:32 Last Admin: 05/18/17 15:27 Dose: 999 mls/hr - Scribe Statement The provider has reviewed the documentation as recorded by the Scribe Nikole Bailey Provider Scribe Attestation: All medical record entries made by the Scribe were at my direction and personally dictated by me. I have reviewed the chart and agree that the record accurately reflects my personal performance of the history, physical exam, medical decision making, and the department course for this patient. I have also personally directed, reviewed, and agree with the discharge instructions and disposition. Disposition/Present on Arrival - Present on Arrival Any Indicators Present on Arrival: No History of DVT/PE: No History of Uncontrolled Diabetes: No Urinary Catheter: No History of Decub. Ulcer: No History Surgical Site Infection Following: None - Disposition Have Diagnosis and Disposition been Completed?: Yes Diagnosis: Syncope Disposition: HOSPITALIZED Disposition Time: 17:50 Condition: STABLE Discharge Instructions (ExitCare): Syncope (ED) Forms: [employer] (Persian)
[2017-05-18 15:00] LABS: BASO # 0.02 K/mm3 (0.0-2.0); BASO % 0.3 % (0.0-3.0); EOS # 0.2 (0.0-0.7); EOS % 2.6 % (1.5-5.0); GRAN # 4.93 (1.4-6.5); GRAN % 66.7 % (50.0-68.0); HEMOGLOBIN 13.3 g/dL (12.0-16.0); LYMPH # 1.8 (1.2-3.4); LYMPH % 23.8 % (22.0-35.0); MEAN CELL VOLUME 87.6 fl (80.0-105.0); MEAN CORPUSCULAR HEMOGLOBIN 30.4 pg (25.0-35.0); MEAN CORPUSCULAR HGB CONC 34.7 g/dl (31.0-37.0); MEAN PLATELET VOLUME 11.3 fl (7.0-11.0); MONO # 0.5 (0.1-0.6); MONO % 6.6 % (1.0-6.0); PLATELET COUNT 208 10^3/uL (120.0-450.0); RBC 4.37 10^6/uL (3.5-6.1); RED CELL DISTRIBUTION WIDTH 12.8 % (11.5-14.5); WHITE BLOOD COUNT 7.4 10^3/ul (4.5-11.0)
[2017-05-18 15:09] LABS: ALB/GLOB RATIO 1.3 (1.1-1.8); ALBUMIN 4.1 g/dL (3.0-4.8); ALT/SGPT 40 U/L (7-56); AST/SGOT 40 U/L (15-39); BLOOD UREA NITROGEN 20 mg/dL (7-21); CALCIUM 8.9 mg/dL (8.4-10.5); GFR AFRICAN-AMERICAN > 60; GFR NON-AFRICAN AMERICAN > 60; INR 0.99 (0.93-1.08); MAGNESIUM 2.1 mg/dL (1.7-2.2); PARTIAL THROMBOPLASTIN TIME 24.3 Seconds (23.7-30.8); PROTHROMBIN TIME 10.7 Seconds (9.9-11.8)
[2017-05-18 15:27] LABS: TROPONIN I < 0.01 ng/mL
[2017-05-18 17:27] LABS: URINE BILIRUBIN NEGATIVE (NEGATIVE); URINE BLOOD NEGATIVE (NEGATIVE); URINE GLUCOSE (UA) NEGATIVE (NEGATIVE); URINE LEUKOCYTE ESTERASE NEGATIVE Leu/uL (NEGATIVE); URINE NITRATE NEGATIVE (NEGATIVE); URINE PROTEIN NEGATIVE mg/dL (<30 mg/dL); URINE UROBILINOGEN 0.2 E.U./dL (<1 E.U./dL)
[2017-05-18 17:43] LABS: HCG,QUALITATIVE URINE NEGATIVE (NEGATIVE); URINE APPEARANCE CLEAR (CLEAR); URINE COLOR YELLOW (YELLOW)
--- NOTE | 2017-05-18 18:31 | CT ---
PROCEDURE: CT HEAD WITHOUT CONTRAST. HISTORY: syncope COMPARISON: Arabella christie is made to the previous study dated 05/08/2017 TECHNIQUE: Axial computed tomography images were obtained through the head/brain without intravenous contrast. Radiation dose: Total exam DLP = 822.62 mGy-cm. This CT exam was performed using one or more of the following dose reduction techniques: Automated exposure control, adjustment of the mA and/or kV according to patient size, and/or use of iterative reconstruction technique. FINDINGS: HEMORRHAGE: No intracranial hemorrhage. BRAIN: No mass effect or edema. No atrophy or chronic microvascular ischemic changes. VENTRICLES: Unremarkable. No hydrocephalus. CALVARIUM: Unremarkable. PARANASAL SINUSES: Unremarkable as visualized. No significant inflammatory changes. MASTOID AIR CELLS: Unremarkable as visualized. No inflammatory changes. OTHER FINDINGS: None. IMPRESSION: No evidence of acute intracranial hemorrhage intracranial collection mass effect or midline shift. No evidence of significant interval change since the previous exam.
[2017-05-18 21:42] VITALS: BMI 25.9
--- NOTE | 2017-05-19 07:14 | RAD ---
HISTORY: Syncope. Technique: Portable study performed @ 18:15. COMPARISON: 05/08/2017. FINDINGS: LUNGS: No active pulmonary disease. PLEURA: No significant pleural effusion identified, no pneumothorax apparent. CARDIOVASCULAR: Normal. OSSEOUS STRUCTURES: No significant abnormalities. VISUALIZED UPPER ABDOMEN: Normal. OTHER FINDINGS: None. IMPRESSION: No active disease. No significant interval change compared to the prior examination(s).
--- NOTE | 2017-05-19 09:36 | CP.PCM.CON ---
<Raciel Villalpando - Last Filed: 05/19/17 12:22> History of Present Illness - History of Present Illness History of Present Illness: Neurology Consult Note for Dr. Mario 56 y/o F with PMH of HTN and dyslipidemia presents after syncopal episode at home. Pt states she was getting up to go to the bathroom when she passed out. Pt states episode was witnessed by her who states she patient did not have any bowel or bladder incontinence. Pt did not have any tongue biting. Pt was unconscious for 5 seconds before she become more alert. There was no postictal state. At that time, patient was brought to the ED. In the ED, pt underwent orthostatic vitals and when she was sat up for her BP, she passed out again. Pt does not remember if she hit her head at any point during the episode. Of note, pt has been here many times in the past for similar complaints and episodes. Pt was recently here earlier this month and had a workup done at that time, which was negative. Denies CP, SOB, N/V/D, dizziness, fevers, chills, dysuria, palpitations, rashes. PMH: HTN, dyslipidemia Social Hx: Denies alcohol, tobacco, or illicit drug use FMH: Noncontributory Medications: Reviewed, as per chart Allergies: NKDA Review of Systems - Review of Systems Review of Systems: 14 point review of systems as per HPI, otherwise negative Past Patient History - Infectious Disease Hx of Infectious Diseases: None - Tetanus Immunizations Tetanus Immunization: Unknown - Past Social History Smoking Status: Never Smoked - CARDIAC Hx Cardiac Disorders: Yes Hx Hypertension: Yes - PULMONARY Hx Respiratory Disorders: No - NEUROLOGICAL Hx Neurological Disorder: Yes Hx Dizziness: Yes Other/Comment: syncope, loc - HEENT Hx HEENT Problems: Yes (speech impediment, eyeglasses) - RENAL Hx Chronic Kidney Disease: No - ENDOCRINE/METABOLIC Hx Endocrine Disorders: No - HEMATOLOGICAL/ONCOLOGICAL Hx Blood Disorders: No - INTEGUMENTARY Hx Dermatological Problems: Yes Other/Comment: rle 1cm round red wound was a "mosquito bite" pt scratched it - MUSCULOSKELETAL/RHEUMATOLOGICAL Hx Falls: Yes (syncopal episode today) - GASTROINTESTINAL Hx Gastrointestinal Disorders: Yes - GENITOURINARY/GYNECOLOGICAL Hx Genitourinary Disorders: No - PSYCHIATRIC Hx Psychophysiologic Disorder: No Hx Depression: No Hx Emotional Abuse: No Hx Physical Abuse: No - SURGICAL HISTORY Hx Appendectomy: Yes - ANESTHESIA Hx Anesthesia: Yes Hx Anesthesia Reactions: No Hx Malignant Hyperthermia: No Meds Allergies/Adverse Reactions: Allergies Allergy/AdvReac Type Severity Reaction Status Date / Time No Known Allergies Allergy Verified 05/18/17 14:25 Physical Exam - Constitutional Appears: Well, No Acute Distress - Head Exam Head Exam: ATRAUMATIC, NORMAL INSPECTION, NORMOCEPHALIC - Eye Exam Eye Exam: EOMI, Normal appearance, PERRL - ENT Exam ENT Exam: Mucous Membranes Moist - Neck Exam Neck exam: Positive for: Normal Inspection. Negative for: Lymphadenopathy - Respiratory Exam Respiratory Exam: Clear to Auscultation Bilateral, NORMAL BREATHING PATTERN. absent: Rales, Rhonchi, Wheezes - Cardiovascular Exam Cardiovascular Exam: RRR, +S1, +S2 - GI/Abdominal Exam GI & Abdominal Exam: Normal Bowel Sounds, Soft. absent: Tenderness - Extremities Exam Extremities exam: Negative for: calf tenderness, pedal edema - Neurological Exam Neurological exam: Alert, CN II-XII Intact, Oriented x3 Additional comments: No pronator drift Muscle strength 5/5 in all extremities - Psychiatric Exam Psychiatric exam: Normal Affect, Normal Mood - Skin Skin Exam: Intact, Normal Color, Warm Results - Vital Signs Recent Vital Signs: Last Vital Signs Temp 98.4 F 05/19/17 06:00 Pulse 72 05/19/17 06:00 Resp 18 05/19/17 06:00 BP 115/68 05/19/17 06:00 Pulse Ox 99 05/19/17 06:00 - Labs Result Diagrams: 05/18/17 14:50 05/18/17 14:50 Assessment & Plan - Assessment and Plan (Free Text) Plan: 56 y/o F with PMH of HTN and dyslipidemia presents with vasovagal syncope. Pt will full syncope workup recently, everything found to be negative. Patient again received Head CT which was negative for any acute pathology. Pt had Brain MRI which is negative at this time. Pt also had loop recorder placed due to recurrent syncopal episodes. Pt may benefit from tilt table test as outpatient. Patient is neurologically stable. Will sign off at this time, please reconsult as necessary. Plan: Recheck orthostatic vitals Encourage oral hydration Consider tilt-table test as outpatient Follow up with cardiology Continue ASA for stroke prevention Continue Lipitor for dyslipidemia Irasema, PGY-2 <Dimitry Mario - Last Filed: 05/19/17 13:42> Results - Vital Signs Recent Vital Signs: Last Vital Signs Temp 98.4 F 05/19/17 06:00 Pulse 80 05/19/17 10:00 Resp 18 05/19/17 06:00 BP 115/68 05/19/17 06:00 Pulse Ox 99 05/19/17 06:00 - Labs Result Diagrams: 05/18/17 14:50 05/18/17 14:50 Attending/Attestation - Attestation I have personally seen and examined this patient.: Yes I have fully participated in the care of the patient.: Yes I have reviewed all pertinent clinical information: Yes
--- NOTE | 2017-05-19 11:00 | MRI ---
PROCEDURE: MRI BRAIN WITHOUT CONTRAST HISTORY: recurrent syncope COMPARISON: None. TECHNIQUE: Multiplanar, multisequence MR images of the brain were obtained without intravenous contrast enhancement. FINDINGS: HEMORRHAGE: None DWI: No evidence of an acute or early subacute infarction. BRAIN PARENCHYMA: No mass effect or edema. Minimal microvascular changes. No evidence of atrophy VENTRICLES: Unremarkable. No hydrocephalus. CRANIUM: Unremarkable. ORBITS: Grossly unremarkable. PARANASAL SINUSES/MASTOIDS: Clear VASCULAR SYSTEM: Skull base flow voids intact. OTHER FINDINGS: None. IMPRESSION: Unremarkable non contrast enhanced MRI of the brain.
[2017-05-19] MEDS ORDERED: Lidocaine 2% Inj (20ml) ONE (11:02)
--- NOTE | 2017-05-19 13:15 | CARD ---
APPROVED REPORT HISTORY The Patient is a 56 year-old female with a history of Recurrent syncope PROCEDURES Implantable Loop recorder,REVEAL LINQ, [employer] INDICATIONS Recurrent Syncope IMPLANTED DEVICES Linq, REveal, [employer] OPERATIVE NOTE Left dide of chest was prepped and draped and 1.5 cm left lateral to Mid sternal line at 4th intercostal space 2% lidocaine give and with # 11 BP Knife a smaal incision made and Linq was injected to this pocket and Dermabond applied. THE VENTRICULAR ELECTRODE PARAMETERS post procedure Reveal was checked, good P wave was found. pt was give education post procedure for event recording and monitoring and F/u. Arrangement hasbeebn made for transtelephonic recording continously COMPLICATIONS The patient tolerated the procedure well and there were no complications associated with the procedure. CONCLUSION Successful Implantation of Loop recorder, Reveal (linq) from [employer]. CC; Dr. Otero.
--- NOTE | 2017-05-19 13:21 | CARD ---
APPROVED REPORT EKG Measurement Heart [id number] <Conclusion> Poor data quality, interpretation may be adversely affected Normal sinus rhythm Normal ECG
--- NOTE | 2017-05-19 19:52 | CON ---
DATE: 05/19/2017 CONSULT SERVICE CARDIOLOGY PHYSICIAN: Dr. Matteo Mars. REASON FOR THE CONSULTATION: Syncope and dizziness. BRIEF CLINICAL HISTORY: This is a 56-year-old obese female, body mass index 31 kg/m2, history of hypertension, hyperlipidemia, history of hypertriglyceridemia, benign positional vertigo (chronic vertigo), being followed by Dr. Mario, on meclizine, who stated that yesterday she was with boyfriend at home, wanted to go to the bathroom, suddenly she passed out, came to the emergency room and she said in the emergency room one more time she passed out. Denies any chest pain. Denies any shortness of breath. Denies any palpitation. History of recurrent syncope in the past. Two weeks ago, the patient was admitted on 05/10/2017 with the same situation. The patient was dropped off the [employer] bus to the [employer] and there she passed out. History of developmental disability. PAST HISTORY: Significant for hypertension, hyperlipidemia, chronic dizziness, history of benign positional vertigo, history of developmental disability. PREVIOUS CARDIAC WORKUP: As follows: The patient has a carotid artery ultrasound on 03/08/2000, there is a 29% stenosis. History of stress test on 05/06/2016, normal gated wall motion, perfusion study normal, Lexiscan ejection fraction 52%. The patient had echocardiography on 03/08/2016 that shows normal chamber size, ejection fraction 55% to 60%, trace to mild mitral regurgitation, mild to moderate tricuspid regurgitation, RV systolic pressure 29. SOCIAL HISTORY: Denies smoking. Denies any history of alcohol abuse. PAST SURGICAL HISTORY: Significant for appendectomy many years ago. FAMILY HISTORY: Noncontributory. No history of coronary artery disease in the family. CURRENT MEDICATIONS: The patient is taking at home Lopid 600 mg twice a day, Zetia 10 mg, simvastatin 20 mg daily, enalapril and hydrochlorothiazide combination, 5 mg of enalapril and 12.5 mg of hydrochlorothiazide and also takes p.r.n. meclizine. REVIEW OF SYSTEMS: A 14-point review of systems as per HPI. PHYSICAL EXAMINATION: As follows: VITAL SIGNS: Temperature afebrile, heart rate 72, blood pressure 115/68. HEENT: PERRLA. Extraocular muscles intact. NECK: Supple. No carotid bruit. No thyromegaly. CHEST: Clear to auscultation. HEART: S1 and S2 regular. ABDOMEN: Soft. EXTREMITIES: Clubbing and cyanosis negative. LABORATORY DATA: EKG showed normal sinus, rate of 78, no acute ST-T wave changes noted. Blood workup as follows: WBC 7.5, hemoglobin 13.3, hematocrit 38.3, platelet count 208. Chemistry shows sodium 140, potassium 3.6, chloride 103, carbon dioxide 27, anion gap of 14, BUN 23, creatinine 0.6. Troponin 0.01. IMPRESSION: Recurrent syncope, no history of orthostatic hypotension, history of benign positional vertigo, developmental disability, hypertension and hyperlipidemia. RECOMMENDATION: We will do orthostatics. If orthostatic remains negative, we will do loop recorder as on the last recommendation. We will send the loop recorder to see why this keeps on happening. This admission, twice the patient fell down. Before prior admission, the patient has twice syncope, and prior to that, the patient has one more episode of syncope. Further recommendations after the loop recorder, and after the loop recorder, we will do the orthostatic hypotension. Thank you Dr. Otero for providing me the opportunity in taking care of the patient, Norma Blancas. We will follow with you. Matteo Mars MD
--- NOTE | 2017-05-19 21:29 | HP ---
CHIEF COMPLAINT: Recurrent syncopal episodes. HISTORY OF PRESENT ILLNESS: This is a 56-year-old female with history of hypertension in the past and multiple episodes of syncope who was brought by ambulance to emergency room after experiencing a syncopal episode at home when she got up from bed going to the bathroom and she passed out at bed. The patient does not remember that she passed out. When in emergency room, the patient had another episode of syncope during orthostatic changes checked out by nurse when sitting in the chair for less than a few seconds. She denied any chest pain, heart palpitations, dizziness, or blurry vision. PAST MEDICAL HISTORY: Hypertension and the patient is presently taking lisinopril HCT. The patient has history of mild developmental disorder. PAST SURGICAL HISTORY: Status post appendectomy. ALLERGIES: THE PATIENT HAS NO KNOWN ALLERGIES. MEDICATION: Lisinopril HCT 20/12.5 daily. FAMILY HISTORY: Noncontributory. SOCIAL HISTORY: The patient denies any smoking, alcohol, or drug use. The patient lives in the [facility] with significant other. 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 She is independent with activity of daily living. REVIEW OF SYSTEMS: She denies any fever, loss of appetite, or weight loss. She denies any dysphagia, sore throat, or nasal congestion. She denies any neck masses. She denies any cough or shortness of breath. She denies any chest pain, heart palpitation, or diaphoresis. She has recurrent episodes of passing out. She denies any abdominal symptoms as nausea, vomiting, diarrhea, or constipation. She denies any heartburn. The patient denies any dysuria, hematuria, or flank pain. She denies any blurry vision, headaches, or weakness. She has multiple episodes of syncope but denies any seizures. She denies any joint pain. She denies any depression or anxiety symptoms. PHYSICAL EXAMINATION: GENERAL: The patient is in bed, alert, awake, oriented. VITAL SIGNS: Stable. Temperature 98.4, pulse 72 and regular, blood pressure 115/68. Orthostatic blood pressure shows slight orthostatic changes with drop. Oxygen saturation is 99% on room air. HEENT: Head is normocephalic and atraumatic. Eyes with pupils reactive to light. No jaundice. Oral mucosa is moist. NECK: Supple. No neck masses. No JVD. LUNGS: Clear to auscultation. HEART: Regular rhythm and rate. ABDOMEN: Soft, nontender, nondistended. EXTREMITIES: With no edema and full range of motion. NEUROLOGIC: Showed alert, awake, oriented person with no sensory or motor deficits. DIAGNOSTIC TESTS: CBC: WBC 7.4, hemoglobin 13.3, hematocrit 38.3. Chemistry was normal. Glucose was normal. Troponin was negative. Urinalysis was normal. EKG showed normal sinus rhythm with no ST-T changes. Her chest x-ray was negative for any pulmonary disease. The CT scan of head was negative for intracerebral bleeding or pathology. The patient had prior admission for syncope 2 weeks ago when she had a normal stress test and a normal echocardiogram done. ASSESSMENT: A 56-year-old female with; 1. History of hypertension and multiple recurrent syncopal episodes, most probably vasovagal etiology, must rule out possible atypical seizure. 2. Developmental disability. 3. Hypertension. PLAN OF TREATMENT: The patient was admitted for observation. Neurology and Cardiology were consulted. An MRI of the brain was ordered. The patient would benefit from having EEG test as well as tilt test done. Екатерина Danielle MD
[2017-05-20 00:02] VITALS: RESP 22
[2017-05-20 06:46] LABS: HEMOGLOBIN 13.1 g/dL (12.0-16.0); MEAN CELL VOLUME 89.2 fl (80.0-105.0); MEAN CORPUSCULAR HEMOGLOBIN 29.4 pg (25.0-35.0); MEAN PLATELET VOLUME 10.7 fl (7.0-11.0); RBC 4.45 10^6/uL (3.5-6.1); RED CELL DISTRIBUTION WIDTH 12.9 % (11.5-14.5); WHITE BLOOD COUNT 7.1 10^3/ul (4.5-11.0)
[2017-05-20 07:00] VITALS: BP 115/63; PULSE 80; TEMP 97.9; O2SAT 97
[2017-05-20 07:00] LABS: ALT/SGPT 38 U/L (7-56); AST/SGOT 25 U/L (15-39); BLOOD UREA NITROGEN 18 mg/dL (7-21); GFR AFRICAN-AMERICAN > 60; GFR NON-AFRICAN AMERICAN > 60
[2017-05-20 07:12] LABS: ALB/GLOB RATIO 1.2 (1.1-1.8); ALBUMIN 3.9 g/dL (3.0-4.8)
--- NOTE | 2017-05-20 11:17 | PN ---
DATE: 05/20/2017 REASON FOR CONSULTATION: Syncope, dizziness, status post implantable loop recorder implanted. SUBJECTIVE: Denies any chest pain or shortness of breath. Denies any dizziness. OBJECTIVE: GENERAL: Lying on the bed, getting ready for breakfast, not in apparent distress. VITAL SIGNS: Temperature afebrile, heart rate 80, blood pressure 105/63. HEENT: PERRLA. Extraocular muscles intact. NECK: Supple. No carotid bruit or thyromegaly. CHEST: Clear to auscultation. HEART: S1 and S2 regular. ABDOMEN: Soft. EXTREMITIES: Clubbing and cyanosis negative. LABORATORY DATA: WBC 7.1, hemoglobin 13.1, hematocrit 39.7, platelet count 203. Chemistry shows sodium 141, potassium 3.9, chloride 105, carbon dioxide 25, anion gap of 15, BUN 18, creatinine 0.7, troponin 0.01. The patient had an MRI done yesterday, that shows unremarkable MRI. IMPRESSION AND PLAN: Recurrent syncope, chronic vertigo, hyperlipidemia, hypertension. Yesterday, orthostatic was changed. No evidence of orthostatic hypotension. Status post loop recorder implanted. Yesterday, blood pressure on lying 123/80, sitting 138/75, with standing 145/75. No evidence of orthostatic hypotension. Loop recorder was placed. Arrangement is made for continuous transtelephonic monitoring. Education was given to the patient. We will discuss with Dr. Florez. Agree to hold antihypertensive medication because the patient's hydrochlorothiazide and enalapril are probably causing this hypotension. Okay to discharge. Follow up as an outpatient. The patient's most recent echo on 04/04/2016, shows normal chamber size, ejection fraction 55% to 60%. The patient also had a stress test that shows essentially normal. Recommendation at this point, continue anticholesterol medication. Follow up as an outpatient. Matteo Mars MD
--- NOTE | 2017-05-20 11:17 | DS ---
HISTORY OF PRESENT ILLNESS: The patient is a 56-year-old female admitted for recurrent syncopal episodes. She was hospitalized 2 weeks ago, developed another episode of syncope at home and then again in the emergency room. The patient is doing well. She is asymptomatic, there was no more syncope since admission. She denies any headache, blurry vision, chest pain, or heart palpitations. The patient had loop recorder implanted by vocational rehabilitation supervisor yesterday for her heart rate monitoring. PHYSICAL EXAMINATION: GENERAL: She is comfortable in bed, alert, awake, and oriented. VITAL SIGNS: Stable. Temperature 97.9, blood pressure remains stable 115/63, there are no obvious orthostatic changes, pulse 80, and respiratory rate 22. HEENT: Head is normocephalic and atraumatic. Eyes with pupils reactive to light. No jaundice. Oral mucosa is moist. NECK: Supple. LUNGS: Clear to auscultation. HEART: Regular rhythm and rate. ABDOMEN: Soft, nontender, and nondistended. EXTREMITIES: With no edema. NEUROLOGIC: Normal. DIAGNOSTIC DATA: This morning, CBC is within normal limits and CMP with normal electrolytes and renal function. Heart rate in telemetry showed no signs of cardiac arrhythmia. She had MRI of the brain yesterday, which showed no significant brain pathology. ASSESSMENT: 1. Recurrent syncope, uncertain etiology most probably vasovagal possibility of cardiac arrhythmia cannot be ruled out. 2. Developmental disability. 3. Hypertension. The patient is normotensive during hospitalization. PLAN OF TREATMENT: The patient will be discharged home today. She was advised to stop antihypertensive medication until further evaluation. The patient will follow with primary care doctor in next week. She was advised to follow up with vocational rehabilitation supervisor. The patient will have a loop recorder for heart monitoring. She will be discharged home on heart-healthy diet. Екатерина Danielle MD
== END 2017-05-20 11:27 | disposition home or self-care (01) ==
LOC: ED 14:17 → ERH 17:47 → 2RNO 20:27
PROVIDERS: ADMIT Family Medicine; ATTEND Family Medicine
DX: R55 Syncope and collapse (principal); I10 Essential (primary) hypertension; E78.5 Hyperlipidemia, unspecified; H81.10 Benign paroxysmal vertigo, unspecified ear
CPT/HCPCS: 33282; 36415; 70450; 70551; 71010; 80053; 81003; 82550; 82948; 83615; 83735; 84484; 84703; 85025; 85027; 85610; 85730; 93005; 96360; 99285; C1764; G0378; J7040

== ENCOUNTER 2017-08-20 17:45 | Emergency (ER) | payer MEDICARE ==
[2017-08-20 17:46] VITALS: BMI 30.9
[2017-08-20 17:56] VITALS: BP 144/87; PULSE 77
--- NOTE | 2017-08-20 17:58 | ED PDOC ---
Arrival/HPI - General Chief Complaint: Back Pain Time Seen by Provider: 08/20/17 17:58 Historian: Patient - History of Present Illness Narrative History of Present Illness (Text): 08/20/17 17:58 Norma Blancas is a 56 year old female, whose past medical history includes hypertension, dyslipidemia, recurrent syncope, and s/p loop recorder recorder, who presents to the ED complaining of left lower back pain x 1 day. Patient stated she tripped and fell backward on the floor. Patient denies head injury, neck pain, LOC, n/v, dizziness, paresthesias, weakness, GI/ incontinence, urinary retention, hematuria, sob, cp, or abnormal gait. Time/Duration: Other (1 day) Quality: Aching Context: Home Past Medical History - Provider Review Nursing Documentation Reviewed: Yes - Infectious Disease Hx of Infectious Diseases: None - Tetanus Immunization Tetanus Immunization: Unknown - Cardiac Hx Cardiac Disorders: Yes Hx Hypertension: Yes - Pulmonary Hx Respiratory Disorders: No - Neurological Hx Neurological Disorder: Yes Hx Dizziness: Yes (syncope) - HEENT Hx HEENT Disorder: Yes (speech impediment) - Renal Hx Renal Disorder: No - Endocrine/Metabolic Hx Endocrine Disorders: No - Hematological/Oncological Hx Blood Disorders: No - Integumentary Hx Dermatological Disorder: No - Musculoskeletal/Rheumatological Hx Musculoskeletal Disorders: No Hx Falls: Yes - Gastrointestinal Hx Gastrointestinal Disorders: No - Genitourinary/Gynecological Hx Genitourinary Disorders: No - Psychiatric Hx Psychophysiologic Disorder: No Hx Substance Use: No - Surgical History Hx Appendectomy: Yes - Anesthesia Hx Anesthesia: Yes - Suicidal Assessment Feels Threatened In Home Enviroment: No Family/Social History - Physician Review Nursing Documentation Reviewed: Yes Family/Social History: Other (noncontributory) Smoking Status: Former Smoker Hx Alcohol Use: No Hx Substance Use: No Hx Substance Use Treatment: No Allergies/Home Meds Allergies/Adverse Reactions: Allergies No Known Allergies Allergy (Verified 08/20/17 17:51) Review of Systems - Review of Systems Constitutional: Normal. absent: Fatigue, Weight Change, Fevers Eyes: Normal ENT: Normal Respiratory: Normal. absent: SOB, Cough, Sputum, Wheezing Cardiovascular: Normal Gastrointestinal: Normal. absent: Abdominal Pain, Nausea, Vomiting Genitourinary Female: Normal. absent: Dysuria, Hematuria Musculoskeletal: Back Pain Skin: Normal. absent: Rash Neurological: Normal. absent: Headache, Dizziness, Focal Weakness, Gait Changes , Speech Changes, Facial Droop, Disequilibrium, Seizure Endocrine: Normal Hemo/Lymphatic: Normal Psychiatric: Normal Physical Exam Vital Signs Temp Pulse Resp BP Pulse Ox 08/20/17 18:44 98.2 F 77 18 144/87 99 08/20/17 17:51 98.0 F 77 16 144/87 96 Temperature: Afebrile Blood Pressure: Normal Pulse: Regular Respiratory Rate: Normal Appearance: Positive for: Well-Appearing, Non-Toxic, Comfortable Pain Distress: None Mental Status: Positive for: Alert and Oriented X 3 - Systems Exam Head: Present: Atraumatic, Normocephalic Pupils: Present: PERRL Extroacular Muscles: Present: EOMI Conjunctiva: Present: Normal Mouth: Present: Moist Mucous Membranes Neck: Present: Normal Range of Motion Respiratory/Chest: Present: Clear to Auscultation, Good Air Exchange. No: Respiratory Distress, Accessory Muscle Use Cardiovascular: Present: Regular Rate and Rhythm, Normal S1, S2. No: Murmurs Abdomen: Present: Normal Bowel Sounds. No: Tenderness, Distention, Peritoneal Signs Back: Present: Normal Inspection, Paraspinal Tenderness ((+) mild left paravertebral tenderness. No vertebral point tenderness). No: CVA Tenderness , Midline Tenderness, Pain with Leg Raise Upper Extremity: Present: Normal Inspection, Normal ROM, NORMAL PULSES, Neurovascularly Intact, Capillary Refill < 2s. No: Cyanosis, Edema Lower Extremity: Present: Normal Inspection, Normal ROM, Neurovascularly Intact , Capillary Refill < 2 s. No: Edema Neurological: Present: GCS=15, CN II-XII Intact, Speech Normal, Motor Func Grossly Intact, Normal Sensory Function, Normal Cerebellar Funct, Gait Normal Skin: Present: Warm, Dry, Normal Color. No: Rashes Psychiatric: Present: Alert, Oriented x 3, Normal Insight, Normal Concentration Medical Decision Making ED Course and Treatment: 08/20/17 19:45 Re-evaluation. Patient feels better. Discussed results and plan with patient who expresses understanding. All questions answered and there is agreement with the plan to discharge home with instructions. Patient stable for discharge. Return if symptoms persist or worsen. Re-evaluation Time: 19:45 Reassessment Condition: Re-examined, Improved - RAD Interpretation Narrative RAD Interpretations (Text): 08/20/17 19:45 LS spine x-rays: No Fx. or sublux. Mild DJD Radiology Orders: 08/20/17 18:06 LS SPINE WITH OBL > 18 YRS OLD [RAD] Stat - Medication Orders Current Medication Orders: Discontinued Medications Ketorolac Tromethamine (Toradol) 30 mg IM STAT STA Stop: 08/20/17 18:08 Last Admin: 08/20/17 18:42 Dose: 30 mg MAR Pain Assessment Document 08/20/17 18:42 [email or web address] (Rec: 08/20/17 18:[email or web address] [facility] [place]14- [id number]) Pain Reassessment Is this a pain reassessment? No Sleep Is patient sleeping during reassessment? No Presence of Pain Presence of Pain Yes Pain Scale Used Pain Scale Used Numeric Location Pain Location Body Site Back Description Description Constant Intensity of Pain at present 8 Pain Behavior Facial Grimacing Aggravating Factors Changing Position Alleviating Factors/Management Medication Techniques Alleviating Factors Medication IM Administration Charges Document 08/20/17 18:42 [email or web address] (Rec: 08/20/17 18:[email or web address] [facility] [place]14- [id number]) Injection Site MAR Injection Site Left Deltoid Charges for Administration # of IM Administrations 1 Disposition/Present on Arrival - Present on Arrival Any Indicators Present on Arrival: No History of DVT/PE: No History of Uncontrolled Diabetes: No Urinary Catheter: No History of Decub. Ulcer: No History Surgical Site Infection Following: None - Disposition Have Diagnosis and Disposition been Completed?: Yes Diagnosis: Back pain Disposition: HOME/ ROUTINE Disposition Time: 19:46 Patient Plan: Discharge Patient Problems: Current Active Problems Problem Status Onset Back pain Acute Condition: GOOD Discharge Instructions (ExitCare): Back Pain (ED) Additional Instructions: Call private doctor for follow up visit in 1-2 days. Take medication as instructed. Return to emergency if symptoms worsen. Prescriptions: Famotidine [Pepcid] 40 mg PO DAILY #10 tablet Naproxen 500 mg PO BID PRN #14 tab PRN Reason: Pain, Severe (8-10) Referrals: [facility] [Outside] - Follow up with primary [facility] [Outside] - Follow up with primary Екатерина Danielle MD [Family Provider] - Follow up with primary Forms: [employer] (Kosovan)
[2017-08-20 18:44] VITALS: TEMP 98.2
[2017-08-20 20:12] VITALS: RESP 19; O2SAT 97
--- NOTE | 2017-08-21 08:31 | RAD ---
PROCEDURE: Radiographs of the Lumbar Spine. HISTORY: pain COMPARISON: No prior. FINDINGS: BONES: Normal alignment. No listhesis. No fracture. DISC SPACES: Unremarkable. OTHER FINDINGS: Mild facet arthropathy at L4-5 and L5-S1 IMPRESSION: Mild degenerative changes
== END 2017-08-20 20:12 | disposition home or self-care (01) ==
LOC: ED 17:45
DX: M54.5 Low back pain (principal); E78.5 Hyperlipidemia, unspecified; I10 Essential (primary) hypertension; Z87.891 Personal history of nicotine dependence
CPT/HCPCS: 72110; 96372; 99282; J1885

== ENCOUNTER 2018-05-27 14:27 | Emergency (ER) | payer MEDICARE ==
[2018-05-27 14:45] VITALS: BMI 26.9
--- NOTE | 2018-05-27 15:19 | ED PDOC ---
Arrival/HPI - General Time Seen by Provider: 05/27/18 15:09 Historian: Patient - History of Present Illness Narrative History of Present Illness (Text): 05/27/18 15:15 57yo female present to ED requesting the removal of her ear rings. States she tried to remove it and couldn't. Denies pain, discharge from ear. Past Medical History - Provider Review Nursing Documentation Reviewed: Yes - Infectious Disease Hx of Infectious Diseases: None - Tetanus Immunization Tetanus Immunization: Unknown - Cardiac Hx Cardiac Disorders: Yes Hx Hypertension: Yes - Pulmonary Hx Respiratory Disorders: No - Neurological Hx Neurological Disorder: Yes Hx Dizziness: Yes (syncope) - HEENT Hx HEENT Disorder: Yes (speech impediment) - Renal Hx Renal Disorder: No - Endocrine/Metabolic Hx Endocrine Disorders: No - Hematological/Oncological Hx Blood Disorders: No - Integumentary Hx Dermatological Disorder: No - Musculoskeletal/Rheumatological Hx Musculoskeletal Disorders: No Hx Falls: Yes - Gastrointestinal Hx Gastrointestinal Disorders: No - Genitourinary/Gynecological Hx Genitourinary Disorders: No - Psychiatric Hx Psychophysiologic Disorder: No Hx Substance Use: No - Surgical History Hx Appendectomy: Yes - Anesthesia Hx Anesthesia: Yes - Suicidal Assessment Feels Threatened In Home Enviroment: No Family/Social History - Physician Review Nursing Documentation Reviewed: Yes Family/Social History: Unknown Family HX Smoking Status: Former Smoker Hx Alcohol Use: No Hx Substance Use: No Hx Substance Use Treatment: No Allergies/Home Meds Allergies/Adverse Reactions: Allergies No Known Allergies Allergy (Verified 08/20/17 17:51) Review of Systems - Physician Review All systems were reviewed & negative as marked: Yes - Review of Systems Constitutional: Normal Eyes: Normal ENT: Other (Ear ring removal) Respiratory: Normal Cardiovascular: Normal Gastrointestinal: Normal Genitourinary Female: Normal Musculoskeletal: Normal Skin: Normal Neurological: Normal Endocrine: Normal Hemo/Lymphatic: Normal Psychiatric: Normal Physical Exam Vital Signs Reviewed: Yes Vital Signs Temp Pulse Resp BP Pulse Ox 05/27/18 15:00 99.3 F 74 18 130/83 99 Temperature: Afebrile Blood Pressure: Normal Pulse: Regular Respiratory Rate: Normal Appearance: Positive for: Well-Appearing, Non-Toxic, Comfortable Pain Distress: None Mental Status: Positive for: Alert and Oriented X 3 - Systems Exam Head: Present: Atraumatic, Normocephalic Pupils: Present: PERRL Extroacular Muscles: Present: EOMI Conjunctiva: Present: Normal Ears: Present: Other (Ear ring noted in both ear lobe. No infection. No erythema. No discharge) Mouth: Present: Moist Mucous Membranes Neck: Present: Normal Range of Motion Respiratory/Chest: Present: Clear to Auscultation, Good Air Exchange. No: Respiratory Distress, Accessory Muscle Use Cardiovascular: Present: Regular Rate and Rhythm, Normal S1, S2. No: Murmurs Abdomen: No: Tenderness, Distention, Peritoneal Signs Back: Present: Normal Inspection Upper Extremity: Present: Normal Inspection. No: Cyanosis, Edema Lower Extremity: Present: Normal Inspection. No: Edema Neurological: Present: GCS=15, CN II-XII Intact, Speech Normal Skin: Present: Warm, Dry, Normal Color. No: Rashes Psychiatric: Present: Alert, Oriented x 3, Normal Insight, Normal Concentration Medical Decision Making ED Course and Treatment: 05/27/18 15:21 57yo female in ED for removal of her ear ring b/l. Ear ring was removed. No bleeding. No discharge. Pt was DC home. Advised to wait for 2weeks before using new ear ring. Disposition/Present on Arrival - Present on Arrival Any Indicators Present on Arrival: No History of DVT/PE: No History of Uncontrolled Diabetes: No Urinary Catheter: No History Surgical Site Infection Following: None - Disposition Have Diagnosis and Disposition been Completed?: Yes Diagnosis: Foreign body Disposition: HOME/ ROUTINE Disposition Time: 15:20 Patient Plan: Discharge Patient Problems: Current Active Problems Problem Status Onset Foreign body Acute Condition: STABLE Discharge Instructions (ExitCare): Removal of Foreign Body in Skin Additional Instructions: Leave your ear for about 2weeks before using another ear ring Follow up with your doctor Return to ED for any new symptoms Referrals: Екатерина Danielle MD [Primary Care Provider] - Follow up with primary
[2018-05-27 15:20] VITALS: BP 130/83; PULSE 74; RESP 18; TEMP 99.3; O2SAT 99
== END 2018-05-27 15:24 | disposition home or self-care (01) ==
LOC: ED 14:27
DX: S00.452A Superficial foreign body of left ear, initial encounter (principal); S00.451A Superficial foreign body of right ear, initial encounter; X58.XXXA Exposure to other specified factors, initial encounter; I10 Essential (primary) hypertension; Z87.891 Personal history of nicotine dependence

== ENCOUNTER 2018-08-21 10:04 | Day surgery (SDC) | payer MEDICARE ==
[2018-06-08 02:08] VITALS: BMI 27.4
[~2018-08-21 10:04] MED LIST: Sodium Chloride 0.9% 1,000 ML IV SCH
[2018-08-21] MEDS ORDERED: Propofol 10 mg/ml Inj (20 ML) ONE (11:27)
[2018-08-21 13:03] VITALS: TEMP 97.8
[2018-08-21 13:04] VITALS: BP 154/97; PULSE 85; RESP 18; O2SAT 98
== END 2018-08-21 14:11 | disposition home or self-care (01) ==
LOC: ENDO 10:04
PROVIDERS: ATTEND Internal Medicine Gastroenterology
DX: Z12.11 Encounter for screening for malignant neoplasm of colon (principal); K62.6 Ulcer of anus and rectum; K52.9 Noninfective gastroenteritis and colitis, unspecified; K64.8 Other hemorrhoids
CPT/HCPCS: 45380; 88305; J2001; J2704; J7030; J7040